=== PATIENT | female | born 1970 | race Caucasian/White ===

== ENCOUNTER 2023-01-23 00:35 | Emergency (ER) | payer MEDICAID, OTHER ==
[2023-01-23] MEDS ORDERED: Ketorolac 30 MG/ML SDV ONE (03:15)
[2023-01-23] MEDS ORDERED: Ondansetron 4 MG Tab.DIS ONE (03:15)
[2023-01-23 07:38] LABS: ESTIMATED GFR 68 mL/min (>60)
== END 2023-01-23 03:20 | disposition home or self-care (01) ==
LOC: JD.ED 00:35
DX: S06.0X0A Concussion without loss of consciousness, initial encounter (principal); T14.8XXA Other injury of unspecified body region, initial encounter; I10 Essential (primary) hypertension; E66.9 Obesity, unspecified; Z68.30 Body mass index [BMI] 30.0-30.9, adult; Z91.018 Allergy to other foods; Z88.5 Allergy status to narcotic agent; W01.0XXA Fall on same level from slipping, tripping and stumbling without subsequent striking against object, initial encounter
CPT/HCPCS: 36415; 70450; 70450-26; 71046; 71046-26; 73030-26-RT; 73030-RT; 73502-26-RT; 73502-RT; 80053; 80307; 85025; 99283; 99284

== ENCOUNTER 2024-10-12 21:44 | Emergency (ER) | payer BC, OTHER ==
[2024-10-13 00:11] LABS: CORONAVIRUS COVID-19 NAA NEGATIVE (NEGATIVE); INFLUENZA A NAA NEGATIVE (NEGATIVE); RESPIRATORY SYNCYTIAL VIR NAA NEGATIVE (NEGATIVE)
[2024-10-13] MEDS ORDERED: prednisoLONE Soln 15 MG/5 ML UD Cup PO ONE (00:33)
[2024-10-13] MEDS: prednisoLONE Soln 15 MG/5 ML UD Cup PO ONE (01:00)
== END 2024-10-13 01:18 | disposition home or self-care (01) ==
LOC: JD.ED 21:44
DX: J01.90 Acute sinusitis, unspecified (principal); J02.9 Acute pharyngitis, unspecified; I10 Essential (primary) hypertension; E66.9 Obesity, unspecified; Z88.5 Allergy status to narcotic agent; Z91.018 Allergy to other foods; Z88.8 Allergy status to other drugs, medicaments and biological substances; Z79.890 Hormone replacement therapy; Z79.899 Other long term (current) drug therapy; Z68.41 Body mass index [BMI] 40.0-44.9, adult
CPT/HCPCS: 0241U; 87651; 99283; A9270